=== PATIENT | male | born 1940 | race Caucasian/White ===

== ENCOUNTER → 2017-01-08 | Outpatient (REF) ==
[~2017-01-08] MED LIST: ABILIFY2 MG PO; ABILIFY5 MG PO; ALBUTEROL PO; ALBUTEROL0.09 MG/A1 IH; ALBUTEROL0.83 MG/ML IH; ALDACTONE 25MG25 M1 PO; ALDACTONE50 MG PO; ALLEGRA 180MG180 MG PO; ALLEGRA180 MG PO; AMBIEN 10MG10 M1 PO; AMBIEN 10MG10 MG PO; AMBIEN 5MG TABLE5 MG PO; AMBIEN10 MG PO; ASPI81EC PO; ASPIR-LOW81 MG PO; ASPIRIN 32325 MG/TAB PO; ASPIRIN E.C. 8181 MG PO; AVODART 0.5MG0.5 MG PO; BENAZEPRIL PO; BUDEPRION XL300 MG PO; BUFFERED ASPIR325 M1 PO; BUPROPION HCL150 M1 PO; CARBIDOPA & LEV1 TA1 PO; CARVEDILOL; CENTRUM SILVER1 CTB PO; CENTRUM SILVER1 TA1 PO; CIPRO 250MG TA250 MG PO; CLARITIN 1010 MG/TAB PO; COLACE 100100 MG/CAP PO; COREG 25MG25 MG/TAB PO; COREG 6.256.25 MG/TA PO; COREG12.5 MG PO; COZAAR; COZAAR 50MG50 MG/TAB PO; COZAAR100 MG PO; COZAAR50 MG PO; CPAP; DEPAKOTE 250MG250 MG PO; DEPAKOTE ER250 MG PO; DEPAKOTE250 MG PO; DIFLUCAN200 MG PO; DIOVAN 160MG160 MG PO; DIOVAN 80MG80 MG PO; DIOVAN80 MG PO; FEXOFENADINE180 MG PO; FLOMAX0.4 MG PO; FLONASE NASAL S16 GM NS; FLONASE0.05 MG/AC NS; FORADIL AERO0.012 MG IH; FORADIL IH; GLIPIZIDE5 MG PO; GLUCOTROL 5M5 MG/TAB PO; GLUCOTROL5 MG PO; HYTRIN 5MG C5 MG/CAP PO; IMDUR 60MG60 MG/TAB PO; IMDUR30 MG PO; IMDUR60 MG PO; JANUVIA50 MG PO; KLONOPIN 0.5MG0.5 MG PO; KLONOPIN WAFER0.5 MG PO; KLONOPIN0.5 MG PO; KLOR-CON 1010 MEQ PO; LANTUS SOLOS100 U/ML SQ; LANTUS100 U/ML SC; LANTUS100 U/ML SQ; LASIX 20MG TABL20 MG PO; LASIX 40MG TABL40 MG PO; LASIX40 MG PO; LEVAQUIN 5500 MG/TA1 PO; LIPITOR 80MG80 MG PO; LIPITOR80 MG PO; LORTAB 5/500 501 TAB PO; LOVENOX 4040 MG/0.4 SQ; MAALOX MAX + ANT1 ML PO; MAALOX PLUS / M30 ML PO; MASON NATURAL2000 IU PO; MECLIZINE25 MG PO; METFORMIN HCL1000 MG PO; METFORMIN1000 MG PO; MILK OF MA400 MG/5 M PO; MILK OF MA400 MG/52 PO; MINITRAN0.2 MG/HR TD; MULTIPLE VITAMI1 CAP PO; MYSOLINE50 MG PO; NATURAL MAGNES200 MG; NIASPAN 500MG500 MG PO; NIASPAN500 MG PO; NITROSTAT0.4 MG/TAB SL; NORCO PO; NOVOLOG 100U100 U/M1 SC; NOVOLOG 100U100 U/M1 SQ; NOVOLOG FLEX100 U/ML SC; NOVOLOG FLEX100 U/ML SQ; OXY IR5 MG PO; PEPCID 20MG TAB20 MG PO; PERCOCET 5/321 UDTAB PO; PLAVIX 75MG TAB75 MG PO; PREDNISONE20 MG PO; PROVENTIL0.09 MG/A1 IH; PROVENTIL0.09 MG/AC IH; PROVIGIL PO; PROVIGIL200 MG PO; PROZAC 20MG20 MG PO; PROZAC20 MG PO; RANEXA 500MG T500 MG PO; RANEXA500 MG PO; RISPERDAL0.5 MG PO; RT SPIRIVA18 MCG IH; SEROQUEL50 MG PO; SINEMET 25/101 UDTAB PO; SINGULAIR; SINGULAIR 110 MG/TAB PO; SINGULAIR10 MG PO; SPIRIVA HANDIH18 MCG IH; SPIRIVA INH IH; SPIRIVA18 MCG IH; THEO-DUR 2200 MG/TAB PO; TYLENOL 325MG325 MG PO; TYLENOL 8 HR PO; TYLENOL ARTHRI650 M1 PO; TYLENOL ARTHRITIS; TYLENOL ARTHRITIS PO; TYLENOL EXTRA500 M1 PO; VENTOLIN INHAL6.8 GM IH; VENTOLIN0.09 MG IH; VICODIN 5/5001 UDTAB PO; VIIBRYD40 MG PO; VITAMIN D31000 IU PO; WELLBUTRIN SR150 M1 PO; WELLBUTRIN XL300 M1 PO; ZESTRIL2.5 MG PO; ZITHROMAX 250M250 MG PO; ZOCOR 80MG80 MG PO; ZOCOR80 MG PO; ZOFRAN 4MG T4 MG/TAB PO; ZOFRAN4 M1 PO; [UNRECOGNIZED DRUG - REMARK]; flovent; lantus; terazosin; tiotropium; tylenol arthritis PO
== END ==
LOC: ZLAB.STJ 08:56
DX: Z01.89 Encounter for other specified special examinations (principal)

== ENCOUNTER → 2017-01-28 | Outpatient (CLI) | payer MEDICARE, OTHER ==
[2017-01-28 16:00] LABS: CALCIUM 9.5 mg/dL (8.4-10.2); POTASSIUM 5.7 mmol/L (3.4-5.0)
[2017-01-28 16:08] LABS: CREATININE, serum 3.9 mg/dL (0.66-1.25)
== END ==
LOC: ZLAB.STJ 15:06
PROVIDERS: Internal Medicine
DX: N17.8 Other acute kidney failure (principal)

== ENCOUNTER → 2017-01-29 | Outpatient (CLI) | payer MEDICARE, OTHER ==
[2017-01-29 16:10] LABS: BASO # 0.1 (0.0-0.2); BASO % 0.4 % (0.0-2.0); EOS # 0.1 (0.0-0.7); EOS % 0.9 % (0-4.0); GRAN # 7.8 (1.4-6.5); GRAN % 69.5 % (42.2-75.2); LYMPH % 18.1 % (20.0-51.0); MEAN CELL VOLUME 96 fl (80.0-100.0); MEAN CORPUSCULAR HEMOGLOBIN 32 pg (27.0-31.0); MEAN CORPUSCULAR HGB CONC 33 g/dl (33.0-37.0); MEAN PLATELET VOLUME 11.5 fl (7.4-10.4); MONO # 1.1 (0.1-0.6); MONO % 9.9 % (1.7-9.3); PLATELET COUNT 182 K/mm3 (130-400); RED BLOOD COUNT 3.81 M/mm3 (4.20-5.60); REDCELL DISTRIBUTION WIDTH-CV 13.8 % (11.5-14.5); WHITE BLOOD COUNT 11.2 K/mm3 (4.8-10.8)
[2017-01-29 16:28] LABS: HEMATOCRIT 36.5 % (42.0-52.0)
[2017-01-29 17:10] LABS: CALCIUM 9.4 mg/dL (8.4-10.2); CREATININE, serum 3.63 mg/dL (0.66-1.25); POTASSIUM 4.9 mmol/L (3.4-5.0)
== END ==
LOC: ZLAB.STJ 14:42
PROVIDERS: Internal Medicine
DX: N17.8 Other acute kidney failure (principal); N18.2 Chronic kidney disease, stage 2 (mild)

== ENCOUNTER 2017-02-01 16:27 | Outpatient (RCR) | payer MEDICARE, OTHER ==
[~2017-02-01 16:27] MED LIST changes: -ALBUTEROL0.83 MG/ML IH; -COREG 6.256.25 MG/TA PO; -DIFLUCAN200 MG PO; -DIOVAN 160MG160 MG PO; -LIPITOR 80MG80 MG PO; -MASON NATURAL2000 IU PO; -MILK OF MA400 MG/52 PO; -MULTIPLE VITAMI1 CAP PO; -NOVOLOG 100U100 U/M1 SQ; -OXY IR5 MG PO; -TYLENOL 8 HR PO; -ZESTRIL2.5 MG PO; -ZOFRAN 4MG T4 MG/TAB PO
[2017-02-01 17:44] LABS: CALCIUM 9.7 mg/dL (8.4-10.2)
[2017-02-01 17:57] LABS: CREATININE, serum 4.29 mg/dL (0.66-1.25)
[2017-02-01 17:58] LABS: POTASSIUM 5.9 mmol/L (3.4-5.0)
[2017-02-01] MEDS ORDERED: NOVOLOG 100U100 U/M1 SQ (20:00)
[2017-02-01] MEDS ORDERED: ALBUTEROL0.83 MG/ML IH (20:01)
[2017-02-01] MEDS ORDERED: DIOVAN 160MG160 MG PO (20:02)
[2017-02-01] MEDS ORDERED: COLACE 100100 MG/CAP PO (20:04)
[2017-02-01] MEDS ORDERED: JANUVIA50 MG PO (20:06)
[2017-02-01] MEDS ORDERED: TYLENOL 8 HR PO (20:07)
[2017-02-01] MEDS ORDERED: VIIBRYD40 MG PO (20:08)
[2017-02-01] MEDS ORDERED: LIPITOR 80MG80 MG PO (20:11)
[2017-02-01] MEDS ORDERED: MULTIPLE VITAMI1 CAP PO (20:12)
[2017-02-01] MEDS ORDERED: MASON NATURAL2000 IU PO (20:14)
[2017-02-01] MEDS ORDERED: OXY IR5 MG PO (20:20)
[2017-02-01] MEDS ORDERED: ZOFRAN 4MG T4 MG/TAB PO (20:21)
[2017-02-01] MEDS ORDERED: VENTOLIN0.09 MG IH (20:21)
[2017-02-01] MEDS ORDERED: MILK OF MA400 MG/52 PO (20:24)
[2017-02-02 22:35] LABS: ALBUMIN/CREATININE RATIO URINE 57.1 mg/g (0.0-29.0)
[2017-02-04] MEDS ORDERED: DIFLUCAN200 MG PO (11:43)
[2017-02-04] MEDS ORDERED: COREG 6.256.25 MG/TA PO (11:44)
[2017-02-04] MEDS ORDERED: LANTUS SOLOS100 U/ML SQ (11:47)
[2017-02-04] MEDS ORDERED: ZESTRIL2.5 MG PO (11:47)
[2017-02-04] MEDS ORDERED: OXY IR5 MG PO (11:48)
== END 2017-05-02 ==
LOC: ZLAB.STJ
PROVIDERS: Internal Medicine Nephrology
DX: E11.22 Type 2 diabetes mellitus with diabetic chronic kidney disease (principal); N18.2 Chronic kidney disease, stage 2 (mild)

== ENCOUNTER 2017-02-01 19:43 | Inpatient (IN) | payer MEDICARE, OTHER ==
[~2017-02-01] VITALS: Ht 190.5 cm; Wt 105.4 kg
[2017-02-01] MEDS ORDERED: NOVOLOG 100U100 U/M1 SQ (20:00)
[2017-02-01] MEDS ORDERED: ALBUTEROL0.83 MG/ML IH (20:01)
[2017-02-01] MEDS ORDERED: DIOVAN 160MG160 MG PO (20:02)
[2017-02-01] MEDS ORDERED: COLACE 100100 MG/CAP PO (20:04)
[2017-02-01] MEDS ORDERED: JANUVIA50 MG PO (20:06)
[2017-02-01] MEDS ORDERED: TYLENOL 8 HR PO (20:07)
[2017-02-01] MEDS ORDERED: VIIBRYD40 MG PO (20:08)
[2017-02-01 20:11] LABS: BASO # 0.1 (0.0-0.2); BASO % 0.4 % (0.0-2.0); EOS # 0.2 (0.0-0.7); EOS % 1.2 % (0-4.0); GRAN # 9.4 (1.4-6.5); GRAN % 68.6 % (42.2-75.2); HEMATOCRIT 37.7 % (42.0-52.0); HEMOGLOBIN 12.3 g/dl (13.5-18.0); LYMPH # 2.6 (1.2-3.4); MEAN CELL VOLUME 96 fl (80.0-100.0); MEAN CORPUSCULAR HEMOGLOBIN 31 pg (27.0-31.0); MEAN CORPUSCULAR HGB CONC 33 g/dl (33.0-37.0); MEAN PLATELET VOLUME 10.8 fl (7.4-10.4); MONO # 1.4 (0.1-0.6); MONO % 9.9 % (1.7-9.3); PLATELET COUNT 226 K/mm3 (130-400); RED BLOOD COUNT 3.94 M/mm3 (4.20-5.60); WHITE BLOOD COUNT 13.7 K/mm3 (4.8-10.8)
[2017-02-01] MEDS ORDERED: LIPITOR 80MG80 MG PO (20:11)
[2017-02-01] MEDS ORDERED: MULTIPLE VITAMI1 CAP PO (20:12)
[2017-02-01] MEDS ORDERED: MASON NATURAL2000 IU PO (20:14)
[2017-02-01 20:16] LABS: INR 1.2 (0.8-3.0)
[2017-02-01] MEDS ORDERED: OXY IR5 MG PO (20:20)
[2017-02-01] MEDS ORDERED: VENTOLIN0.09 MG IH (20:21)
[2017-02-01] MEDS ORDERED: ZOFRAN 4MG T4 MG/TAB PO (20:21)
[2017-02-01] MEDS ORDERED: MILK OF MA400 MG/52 PO (20:24)
[2017-02-01 20:26] LABS: PH 5 (5-8); SQUAMOUS EPITHELIAL 0-2 /hpf; URINE APPEARANCE Turbid; URINE BACTERIA Rare /hpf; URINE BILIRUBIN Negative (NEGATIVE); URINE BLOOD Negative (NEGATIVE); URINE COLOR Yellow; URINE GLUCOSE Negative (NEGATIVE); URINE KETONE Negative (NEGATIVE); URINE UROBILINOGEN Negative (NEGATIVE); URINE WBC >50 /hpf
[2017-02-01 20:35] LABS: ADJUSTED CALCIUM 9.7 mg/dL (8.4-10.2); ALANINE AMINOTRANSFERASE 20 U/L (21-72); ALBUMIN 3.6 gm/dL (3.5-5.0); ALKALINE PHOSPHATASE 110 U/L (50-136); ANION GAP 14 mmol/L (7-16); BILIRUBIN,TOTAL 0.6 mg/dL (0.0-1.0); BLOOD UREA NITROGEN 69 mg/dL (9-20); C-REACTIVE PROTEIN 1.1 mg/dL (0.0-0.9); CALCIUM 9.4 mg/dL (8.4-10.2); CARBON DIOXIDE 25 mmol/L (22-30); CHLORIDE 104 mmol/L (98-107); GLUCOSE 167 mg/dL (74-106); POTASSIUM 5.2 mmol/L (3.4-5.0); SODIUM 143 mmol/L (137-145); TOTAL PROTEIN 7.4 gm/dL (6.4-8.2)
[2017-02-01 20:47] LABS: CREATININE, serum 3.91 mg/dL (0.66-1.25)
[2017-02-01 23:17] VITALS: BP 151/65; PULSE 75; TEMP 98.8
[2017-02-02 03:36] VITALS: BP 127/59; PULSE 82; TEMP 98.3
[2017-02-02 08:22] LABS: CALCIUM 8.9 mg/dL (8.4-10.2); CREATININE, serum 2.91 mg/dL (0.66-1.25); MAGNESIUM 2.4 mg/dL (1.6-2.3); POTASSIUM 4.9 mmol/L (3.4-5.0)
[2017-02-02 08:25] VITALS: BP 142/68; PULSE 78; TEMP 97.8
[2017-02-02 12:10] VITALS: BP 145/67; PULSE 72; TEMP 97.3
[2017-02-02 17:14] VITALS: BP 107/57; PULSE 71; TEMP 97.8
[2017-02-02 20:08] VITALS: BP 112/50; PULSE 77; TEMP 98.9
[2017-02-02 23:23] VITALS: BP 142/62; PULSE 79; TEMP 98.4
[2017-02-03 04:19] VITALS: BP 109/84; PULSE 51; TEMP 97.4
[2017-02-03 07:30] LABS: CALCIUM 8.8 mg/dL (8.4-10.2); CREATININE, serum 1.54 mg/dL (0.66-1.25); POTASSIUM 4.6 mmol/L (3.4-5.0)
[2017-02-03 08:24] VITALS: BP 148/86; PULSE 84; TEMP 97.9
[2017-02-03 12:05] VITALS: BP 111/58; PULSE 81; TEMP 98.4
[2017-02-03 15:32] VITALS: BP 116/60; PULSE 79; TEMP 98.3
[2017-02-03 20:46] VITALS: BP 166/75; PULSE 84; TEMP 99.1
[2017-02-04] VITALS (7 sets, daily range): BP systolic 90–151; BP diastolic 45–93; PULSE 70–97; TEMP 98.1–98.8
[2017-02-04 08:18] LABS: CALCIUM 8.8 mg/dL (8.4-10.2); CREATININE, serum 1.37 mg/dL (0.66-1.25); POTASSIUM 4.7 mmol/L (3.4-5.0)
[2017-02-04] MEDS ORDERED: DIFLUCAN200 MG PO (11:43)
[2017-02-04] MEDS ORDERED: COREG 6.256.25 MG/TA PO (11:44)
[2017-02-04] MEDS ORDERED: LANTUS SOLOS100 U/ML SQ (11:47)
[2017-02-04] MEDS ORDERED: ZESTRIL2.5 MG PO (11:47)
[2017-02-04] MEDS ORDERED: OXY IR5 MG PO (11:48)
== END 2017-02-04 16:44 | DRG 682 ==
LOC: COL.ER 19:43 → IMCU 21:12 → MEDICAL 21:12
PROVIDERS: Emergency Medicine; Internal Medicine; Internal Medicine Cardiovascular Disease
PROC: 02HV33Z Insertion of Infusion Device into Superior Vena Cava, Percutaneous Approach (ICD-10-PCS; principal; 2017-02-02)
DX: N17.9 Acute kidney failure, unspecified (principal); I50.23 Acute on chronic systolic (congestive) heart failure; I13.0 Hypertensive heart and chronic kidney disease with heart failure and stage 1 through stage 4 chronic kidney disease, or unspecified chronic kidney disease; B37.49 Other urogenital candidiasis; G20 Parkinson's disease; N18.3 Chronic kidney disease, stage 3 (moderate); I25.10 Atherosclerotic heart disease of native coronary artery without angina pectoris; F03.90 Unspecified dementia, unspecified severity, without behavioral disturbance, psychotic disturbance, mood disturbance, and anxiety; E87.5 Hyperkalemia; E11.21 Type 2 diabetes mellitus with diabetic nephropathy; Z79.4 Long term (current) use of insulin; Z95.1 Presence of aortocoronary bypass graft; J44.9 Chronic obstructive pulmonary disease, unspecified; I27.2 Other secondary pulmonary hypertension; Z95.0 Presence of cardiac pacemaker; E11.43 Type 2 diabetes mellitus with diabetic autonomic (poly)neuropathy; K31.84 Gastroparesis; E86.0 Dehydration; I25.5 Ischemic cardiomyopathy; E11.65 Type 2 diabetes mellitus with hyperglycemia
CPT/HCPCS: 99223-AI; 99233-AI; C1751; J0696; J1644; J1815; J1940; J2405; J7030

== ENCOUNTER → 2017-02-09 | Outpatient (CLI) | payer MEDICARE, OTHER ==
[~2017-02-09] MED LIST changes: +ALBUTEROL0.83 MG/ML IH; +COREG 6.256.25 MG/TA PO; +DIFLUCAN200 MG PO; +DIOVAN 160MG160 MG PO; +LIPITOR 80MG80 MG PO; +MASON NATURAL2000 IU PO; +MILK OF MA400 MG/52 PO; +MULTIPLE VITAMI1 CAP PO; +NOVOLOG 100U100 U/M1 SQ; +OXY IR5 MG PO; +TYLENOL 8 HR PO; +ZESTRIL2.5 MG PO; +ZOFRAN 4MG T4 MG/TAB PO
[2017-02-09 09:54] LABS: MEAN CELL VOLUME 95 fl (80.0-100.0); MEAN CORPUSCULAR HGB CONC 32 g/dl (33.0-37.0); PLATELET COUNT 172 K/mm3 (130-400); RED BLOOD COUNT 3.86 M/mm3 (4.20-5.60); REDCELL DISTRIBUTION WIDTH-CV 13.9 % (11.5-14.5); WHITE BLOOD COUNT 12.6 K/mm3 (4.8-10.8)
[2017-02-09 09:56] LABS: ADD PATHOLOGY DIFF REVIEW NO; HEMATOCRIT 36.7 % (42.0-52.0); HEMOGLOBIN 11.9 g/dl (13.5-18.0); MEAN CORPUSCULAR HEMOGLOBIN 31 pg (27.0-31.0)
[2017-02-09 10:00] LABS: ADJUSTED CALCIUM 10.2 mg/dL (8.4-10.2); BILIRUBIN,TOTAL 0.4 mg/dL (0.0-1.0); CALCIUM 9.4 mg/dL (8.4-10.2); CREATININE, serum 2.58 mg/dL (0.66-1.25); POTASSIUM 4.5 mmol/L (3.4-5.0); TOTAL PROTEIN 6.1 gm/dL (6.4-8.2)
[2017-02-09 10:12] LABS: BAND 12 % (0-10); EOSINOPHIL 1 % (0-4); NEUTROPHILS 59 % (42.0-75.2); PLATELET ESTIMATE NORMAL (NORMAL); TOTAL CELLS COUNTED 100
== END ==
LOC: ZLAB.STJ 09:32
PROVIDERS: Internal Medicine
DX: I25.82 Chronic total occlusion of coronary artery (principal)

== ENCOUNTER → 2017-02-18 | Outpatient (CLI) | payer MEDICARE, OTHER ==
[2017-02-18 17:50] LABS: PH 5 (5-8); SQUAMOUS EPITHELIAL None Seen /hpf; URINE APPEARANCE Hazy; URINE BACTERIA Rare /hpf; URINE BILIRUBIN Negative (NEGATIVE); URINE BLOOD 1+ (NEGATIVE); URINE COLOR Yellow; URINE GLUCOSE Negative (NEGATIVE); URINE KETONE Negative (NEGATIVE); URINE UROBILINOGEN Negative (NEGATIVE)
== END ==
LOC: ZLAB.STJ 11:58
PROVIDERS: Internal Medicine Nephrology
DX: N18.3 Chronic kidney disease, stage 3 (moderate) (principal)